=== PATIENT | female | born 1955 | race Caucasian/White ===

== ENCOUNTER 2016-09-21 15:49 | Emergency (ER) | payer MEDICARE, OTHER ==
[~2016-09-21] VITALS: Ht 167.6 cm; Wt 75.0 kg
[~2016-09-21 15:49] MED LIST: EPIT200T PO; METO100T PO; PARO20TA PO; SIMV20TA PO
[2016-09-21 15:51] VITALS: BP 188/77; PULSE 92; RESP 12; TEMP 98.4; O2SAT 98
--- NOTE | 2016-09-21 15:57 | PD ---
Physical Exam Date Seen by Provider: September 21, 2016 Time Seen by Provider: 15:56 Narrative 61 YOWF C/O R FOOT PAIN X 1 WEEK. NO INJURY VVS WAITING FOR BED PLACEMENT Data Data Last Documented VS Vital Signs Date Time Temp Pulse Resp B/P Pulse Ox O2 Delivery O2 Flow Rate FiO2 09/21/16 15:51 98.4 92 12 188/77 98 MDM Medical Record Reviewed: Yes Supervised Visit with JOLEEN: No Senthil Alarcon September 21, 2016 15:57
--- NOTE | 2016-09-21 16:05 | PD ---
HPI . right foot pain x 1 week Chief Complaint: Pain: Acute or Chronic Time Seen by Provider: 16:00 Travel History International Travel<30 days: No Contact w/Intl Traveler<30days: No Traveled to known affect area: No History of Present Illness HPI 61-year-old female here via [facility] secondary right foot pain for one week. Patient tells me that she does not recall any injury. She says she's been experiencing right foot pain and it was unbearable when walking. Her primary care provider is Dr. Lagunas, and she has not been able to see him for this. She denies any other issues. PFSH Past Medical History Arthritis: Yes Atrial Fibrillation: Yes Anxiety: Yes Depression: Yes Heart Rhythm Problems: Yes (afib) Cancer: No Cardiac Catheterization: Yes Cardiovascular Problems: Yes (GA in july 2011) High Cholesterol: Yes Chest Pain: Yes COPD: Yes Cerebrovascular Accident: Yes (JULY 2011) Endocrine: No GERD: Yes Genitourinary: No Hypertension: Yes Implanted Vascular Access Dvce: No Musculoskeletal: Yes (CHRONIC PAIN) Neurologic: Yes (CVA in July 2011) Myocardial Infarction: Yes (JULY 2011) Seizures: Yes (related to CVA) Menopausal: Yes Past Surgical History Coronary Stent: Yes (x 1) Family History Family Hypercholesterolemia: Yes Social History Alcohol Use: No Tobacco Use: Yes (05/09 PPD) Substance Use: No Allergies-Medications (Allergen,Severity, Reaction): Coded Allergies: No Known Allergies (Verified , 09/21/16) Reported Meds & Prescriptions Reported Meds & Active Scripts Active [place] (Hydrocodone-Acetaminophen) 5-325 mg Tab 1 Tab PO Q6H PRN Reported Carbamazepine 100 Mg Chew 300 Mg CHEW BID Metoprolol Tartrate 100 Mg Tab 100 Mg PO DAILY Paroxetine (Paroxetine HCl) 20 Mg Tab 20 Mg PO DAILY Simvastatin 20 Mg Tab 20 Mg PO HS Review of Systems General / Constitutional: No: Fever Eyes: No: Visual changes HENT: No: Headaches Cardiovascular: No: Chest Pain or Discomfort Respiratory: No: Shortness of Breath Gastrointestinal: No: Abdominal Pain Genitourinary: No: Dysuria Musculoskeletal: Positive: Pain (right foot) Skin: No Rash Neurologic: No: Weakness Psychiatric: No: Depression Endocrine: No: Polydipsia Hematologic/Lymphatic: No: Easy Bruising Physical Exam Narrative GENERAL: AAO x 3, no acute distress, Well-nourished, well-developed patient. SKIN: Warm and dry. No visible rashes or bruising. HEAD: Normocephalic and atraumatic. EYES: No scleral icterus. No injection or drainage. ENT: No nasal drainage noted. Mucous membranes pink. Airway patent. NECK: Supple, trachea midline. No JVD. CARDIOVASCULAR: Regular rate and rhythm without murmurs, gallops, or rubs. RESPIRATORY: Breath sounds equal bilaterally. No accessory muscle use. No rhonchi or rales. GASTROINTESTINAL: Abdomen soft, non-tender, nondistended. EXTREMITIES: No cyanosis or edema. Tenderness over the right lateral foot from about the third to fifth metatarsal. No edema, ecchymosis or visual abnormality. Limited range of motion of the toe secondary pain. Dorsi and plantar flexion of the right foot normal NEURO: strength diminished in right foot due to pain/ BACK: Nontender without obvious deformity. No CVA tenderness. PSYCH: AAO x 3, normal affect. Data Data Last Documented VS Vital Signs Date Time Temp Pulse Resp B/P Pulse Ox O2 Delivery O2 Flow Rate FiO2 09/21/16 15:51 98.4 92 12 188/77 98 Orders Foot, Complete ([id number]) (09/21/16 16:03) Splinting (09/21/16 ) Fiberglass Short Leg Splint Ad (09/21/16 ) [facility] Medical Decision Making Medical Screen Exam Complete: Yes Emergency Medical Condition: Yes Medical Record Reviewed: Yes Differential Diagnosis Foot fracture, foot sprain, foot contusion Narrative Course This is a 61-year-old female presenting with foot pain with no known mechanism of injury for about one week. X-ray has been ordered. It reveals a Mckenzie type fracture. I've advised the patient that she will need to see podiatry as these fractures usually require surgical repair. We will place her in a posterior short leg splint and provide her with pain control medications. I've explained to her that she needs to follow-up with the train control technician early next week. I also advised follow-up with her primary care provider. We have also provided her with crutches. Patient verbalized understanding of instructions, questions were answered, and thanked me for their care. I advised them if their condition worsens, please return to the nearest emergency room for further care. Diagnosis Primary Impression: Mckenzie fracture Qualified Code: S99.199A - Mckenzie fracture, closed, initial encounter Referrals: Sandy Almanza DPM Children Teacher Patient Instructions: General Instructions Additional Instructions: Please return to emergency department if your symptoms return or worsen. Follow up with your primary care provider. Take medications as prescribed. If you develop any swelling of the splinted leg, please go to the nearest emergency department. YOU MUST SEE PODIATRY EARLY NEXT WEEK. PLEASE CALL FOR AN APPOINTMENT. Med/Other Pt SpecificInfo: Prescription(s) given Scripts Hydrocodone-Acetaminophen ([place])5-325 mg Tab1 Tab PO Q6H PRN (PAIN) #10 TAB Ref 0 Prov:Prabhjot Floyd MD 09/21/16 Disposition: 01 DISCHARGE HOME Condition: Stable Jennifer Elmore September 21, 2016 16:05
[2016-09-21] MEDS ORDERED: PARO20TA2 PO (16:10)
[2016-09-21] MEDS ORDERED: METO100T PO (16:10)
[2016-09-21] MEDS ORDERED: SIMV20TA PO (16:10)
[2016-09-21] MEDS ORDERED: CARB100C CHEW (16:10)
--- NOTE | 2016-09-21 16:52 | RADRPT ---
EXAM DATE/TIME: 09/21/2016 16:15 [facility] COMPARISON: No previous studies available for comparison. INDICATIONS : Unknown right foot pain MEDICAL HISTORY : Hypertension. SURGICAL HISTORY : Unknown ENCOUNTER: Initial ACUITY: 2 days PAIN SCORE: 8/10 LOCATION: Right Right 5th metatarsal FINDINGS: Three view examination of the right foot demonstrates comminuted, minimally displaced Lucho's type fra cture through the base of the fifth metatarsal. Osseous structures are otherwise intact. CONCLUSION: Comminuted and minimally displaced Lucho's type fracture through the base of the fifth metatarsal . Ron Espinal MD on September 21, 2016 at 16:49 Board Certified Radiologist. This report was verified electronically.
[2016-09-21] MEDS ORDERED: NORC5TAB PO (17:02)
== END 2016-09-21 17:44 | disposition home or self-care (01) ==
LOC: NEPK 15:49
DX: S92.351A Displaced fracture of fifth metatarsal bone, right foot, initial encounter for closed fracture (principal); I48.91 Unspecified atrial fibrillation; I10 Essential (primary) hypertension; I25.2 Old myocardial infarction; X58.XXXA Exposure to other specified factors, initial encounter; Z72.0 Tobacco use
CPT/HCPCS: 29515; 73630; 99283; E0113